=== PATIENT | male | born 1955 | race Caucasian/White ===

== ENCOUNTER → 2016-07-29 | Outpatient (CLI) | payer OTHER ==
[~2016-07-29] MED LIST: AMLO10TA OR; AMLO5TAB2 PO; AMOX500T PO; ASPI325T OR; ASPI325T PO; ATEN25TA PO; BIAX500T PO; CARA1TAB2 PO; CIPR500T89 PO; COLA50CA3 PO; DAILTAB51 PO; DOCU100C PO; FLAG500T PO; FOLI1TAB2 PO; HYDR25TA6 OR; LISI2.5T PO; LOPR50TA OR; LORTTAB5 PO; MAALSUS OR; MAGN400C2 PO; MAGN400T5 PO; MYLASS PO; NICO21DI4 TD; OXYC-208 PO; OXYCO5TA PO; PEPC10TA PO; PERC5TAB8 OR; POTA1TAB14 PO; PRIL40CA PO; REGL10TA6 PO; THERTAB30 PO; TYLE325T5 PO; VITA100T92 PO
--- NOTE | 2016-07-29 09:57 | REP ---
PARTIAL LUMBAR SPINE, THREE VIEWS: HISTORY: Back pain. There is no acute fracture or subluxation. The intervertebral discs are decreased in height consistent with disc degeneration. Osteophytes are present throughout the lumbar spine. There is sclerosis of the L4-5 and L5-S1 facets. IMPRESSION: Degenerative change as described above. Signed by Darien Garcia MD 07/29/2016 10:24 A
== END ==
LOC: M RAD 09:07
PROVIDERS: ATTEND Family Medicine Addiction Medicine
DX: M54.5 Low back pain (principal); M51.36 Other intervertebral disc degeneration, lumbar region

== ENCOUNTER → 2016-11-28 | Outpatient (CLI) | payer OTHER ==
[~2016-11-28] MED LIST changes: -DOCU100C PO; +DOCU100C16 PO; -FOLI1TAB2 PO; +FOLI1TAB4 PO
--- NOTE | 2016-12-09 00:51 | ECWPNPC ---
PATIENT NAME: IVETH ELENA : 1955 GENDER: MALE VISIT DATE: 11/28/2016 DISCHARGE DATE: 11/28/16 1514 VISIT LOCKED DATE TIME: PHYSICIAN: MICHAELA GRAJEDA RESOURCE: MICHAELA GRAJEDA REASON FOR APPOINTMENT 1. BACK PAIN HISTORY OF PRESENT ILLNESS FALL RISK SCREENING: SCREENING :NO FALLS IN THE PAST YEAR 61 YEAR OLD MALE PATIENT WITH HISTORY OF CHRONIC LOW BACK PAIN. PATIENT DESCRIBES THE PAIN SHARP WITH A PAIN SCORE OF 8-9/10. PATIENT REPORTS NO TRAUMA BUT IT HAS GOTTEN PROGRESSIVELY MORE SEVERE. MR. ELENA HAS NOT TRIED PHYSICAL THERAPY OR HAD ANY BACK SURGERIES. PATIENT STATES THAT WALKING INCREASES THE PAIN THE MOST. CURRENTLY THE PATIENT IS NOT USING ANY MEDICATION HE HAS NOT FOUND ANY MEDICATION THAT GIVES HIM RELIEF. PATIENT DENIES UNEXPLAINABLE WEIGHT LOSS, FEVER, CHILLS, NEW CHANGES ON HIS URINARY OR BOWEL CONTROL. PAIN SCREENING: PATIENT HAS A COMPLAINT OF ACUTE OR CHRONIC PAIN :YES CURRENT MEDICATIONS TAKING LACTOBACILLUS RHAMNOSUS (GG) - CAPSULE 1 CAP(S) ORALLY DAILY TAKING POTASSIUM CHLORIDE SA 20 MEQ TABLET 1 TAB(S) ORALLY DAILY TAKING LISINOPRIL 20 20 MG TABLET 1 TAB(S) ORALLY DAILY TAKING ATORVASTATIN CALCIUM 10 MG TABLET 1 TABLET ORALLY ONCE A DAY TAKING PANTOPRAZOLE SODIUM 40 MG TABLET DELAYED RELEASE 1 TABLET ORALLY ONCE A DAY TAKING HYDROCHLOROTHIAZIDE 25 MG TABLET 1 TABLET IN THE MORNING ORALLY DAILY TAKING ATENOLOL 25 MG TABLET 1 TABLET ORALLY ONCE A DAY NOT-TAKING CALCIUM CITRATE 950 MG TABLET 1 TABLET ORALLY DAILY NOT-TAKING DAILY CHERRIE 1 TABLET 1 TAB(S) ORALLY DAILY NOT-TAKING THIAMINE HCL 100 MG TABLET 1 TABLET ORALLY ONCE A DAY NOT-TAKING FOLIC ACID 1 MG TABLET 1 TABLET ORALLY ONCE A DAY NOT-TAKING MAGNESIUM 500 MG TABLET 1 TABLET WITH A MEAL ORALLY ONCE A DAY NOT-TAKING DOCUSATE SODIUM 100 MG CAPSULE 1 CAPSULE NEEDED ORALLY ONCE A DAY MEDICATION LIST REVIEWED AND RECONCILED WITH THE PATIENT PAST MEDICAL HISTORY SD 09/2012, TYPE 2 (ACUTE BLOOD LOSS) GERD PERFORATED GASTRIC ULCER HTN ALCOHOL ABUSE DIVERTICULOSIS COLONIC POLYPS NEXT COLONOSCOPY DUE IN 3 YEARS -- APPROXIMATELY 04/2017 (SUSAN) 10 YEAR ASCVD RISK CALCULATED AT 11.8% (12/2013) FRACTURED RIBS 6 AND 7 ANGINA CARPAL TUNNEL BILATERAL ALLERGIES N.K.D.A. SURGICAL HISTORY DILATION OF DISTAL COMMON BILE DUCT (OBSTRUCTED BY SURGICAL CLIP) -- VERONIQUE'Vivek 11/2013 BILE DUCT STENT REPAIR [facility] ABDOMINAL COILS (FOR GASTRIC VESSELS WITH BLEEDING ULCER) SURGERY FOR PERFORATED GASTRIC ULCER 2013 LEFT LUNG BIOPSY FAMILY HISTORY FATHER: 43 YRS, [place], DIAGNOSED WITH HEART DISEASE MOTHER: ALIVE 2 BROTHER(S) , 4 SISTER(S) . 3DAUGHTER(S) . 1 DGTR HAS HEP C. SOCIAL HISTORY GENERAL: TOBACCO USE ARE YOU A:CURRENT SMOKER HOW MANY CIGARETTES A DAY DO YOU SMOKE?31 OR MORE HOW SOON AFTER YOU WAKE UP DO YOU SMOKE YOUR FIRST CIGARETTE?WITHIN 5 MIN HOW OFTEN DO YOU SMOKE CIGARETTES?EVERY DAY PATIENT COUNSELED ON THE DANGERS OF TOBACCO USE AND URGED TO QUIT:11/28/2016 ARE YOU INTERESTED IN QUITTING?NOT READY TO QUIT COUNSELED THE PATIENT ON SMOKING EFFECTS, EDUCATION [id number]/21/2017 ADDITIONAL FINDINGS: TOBACCO USERHEAVY CIGARETTE SMOKER (20-39 CIGS/DAY) SMOKING CESSATION INFORMATION GIVEN11/28/2016 LUNG CANCER SCREENING SMOKING STATUS:CURRENT SMOKER IS THE PATIENT BETWEEN THE AGE OF 55 AND 77?YES HAS THE PATIENT EVER BEEN DIAGNOSED WITH LUNG CANCER?NO PACK YEARS = NUMBER OF PACKS PER DAY SMOKED X NUMBER OF YEARS SMOKED:60 CREATE REFERRAL: PT DECLINES AT THIS TIME. RECREATIONAL DRUG USE DENIES. CAFFEINE 1-2/DAY TEA. OCCUPATION: TEMPORARY DISABILITY. DIET: REGULAR. LANGUAGE LANGUAGES SPOKEN:[employer] DIRECTIVES HEALTH CARE PROXY?NO WOULD YOU LIKE MORE INFORMATION?NO DO YOU HAVE A DNR?NO WOULD YOU LIKE MORE INFORMATION?NO LIVING WILL?NO WOULD YOU LIKE MORE INFORMATION?NO POWER OF FIRE CONTROL ASSISTANT?NO WOULD YOU LIKE MORE INFORMATION?NO HOSPITALIZATION/MAJOR DIAGNOSTIC PROCEDURE [facility]- LEFT LUNG BIOPSY- NEGATIVE PERFORATED GASTRIC ULCERS REVIEW OF SYSTEMS REVIEWED BY: PROVIDER: MICHAELA GRAJEDA MD . CONSTITUTIONAL: ANY CHANGE IN YOUR MEDICAL CONDITION? NO . CHILLS NO . FEVER NO . INFECTION: DO YOU HAVE NEW INFECTIONS? NO . DO YOU HAVE HISTORY OF MRSA? NO . MUSCULOSKELETAL: ANY NEW PATTERNS OF PAIN OR NUMBNESS? YES PT REPORTS PROGRESSIVELY INCREASING PAIN IN LOW BACK OVER THE LAST 5 YEARS. ALSO REPORTS PAIN IN RIGHT FOOT THAT STARTED IN THE LAST SIX MONTHS, FEELS LIKE HE IS &QUOT;WALKING ON A GOLF BALL&QUOT; . SYTEMIC LUPUS NO . GASTROENTEROLOGY: ANY NEW CHANGE IN BOWEL CONTROL? NO . BARRETTS ESOPHAGUS NO . CIRRHOSIS NO . HEPATITIS NO . LIVER FAILURE NO . ACID REFLUX YES . UNEXPLAINED WEIGHT LOSS NO . GENITOURINARY: ANY NEW CHANGE IN BLADDER CONTROL? NO . IS THERE A CHANCE YOU COULD BE ? NO . HEMATOLOGY/LYMPH: DO YOU TAKE ANY BLOOD THINNERS? (FOR EXAMPLE- COUMADIN, PLAVIX, AGGRENOX, PLATEL, PRADAXA, OR XARELTO) NO . WHEN WAS YOUR LAST DOSE? DATE: TIME: . LOW PLATELET COUNT NO . SICKLE CELL DISEASE NO . VON WILLIEBRANDS NO . FACTOR V LEIDEN NO . THALLASEMIA NO . ANEMIA NO . EASY BRUISING NO . NEUROLOGY: HAVE YOU FALLEN IN THE PAST 6 MONTHS? NO . ANY NEW EXTREMITY NUMBNESS OR WEAKNESS? NO . HEAD INJURY NO . DEMENTIA NO . CEREBRAL PALSY NO . MULTIPLE SCLEROSIS NO . DIZZINESS NO . HEADACHE NO . STROKES NO . VERTIGO NO . CARDIOLOGY: DO YOU HAVE A PACEMAKER OR DEFIBRILLATOR? NO . ANGINA YES . HEART ATTACK YES PT HAD AN SD SECONDARY TO BLOOD LOSS AFTER PERFORATED GASTRIC ULCERS 2013 . HEART SURGERY NO . CONGESTIVE HEART FAILURE/FLUID OVERLOAD NO . CHEST PAIN NO . HIGH BLOOD PRESSURE ON MEDICATION(S) . IRREGULAR HEART BEAT NO . RESPIRATORY: HAVE YOU BEEN SICK IN THE PAST WEEK? NO . FEVER NO . FLU LIKE SYMPTOMS? NO . CPAP NO . BYPAP NO . ASTHMA NO . EMPHYSEMA NO . CHRONIC LUNG DISEASES NO . SHORTNESS OF BREATH ON EXERTION NO . COUGH NO . SNORING NO . INTEGUMENTARY: DO YOU HAVE ANY RASHES OR OPEN SORES? NO . ALLERGIC/IMMUNO: ARE YOU ALLERGIC TO SHELLFISH OR IV DYE? NO . ANY NEW ALLERGIES? NO . PSYCHIATRIC: DO YOU HAVE THOUGHTS OF HURTING YOURSELF OR SOMEONE ELSE? NO . ARE YOU ABUSED, NEGLECTED, OR IN AN UNSAFE ENVIRONMENT? NO . ENDOCRINOLOGY: ARE YOU DIABETIC? NO . THYROID DISORDER NO . OTHER: DO YOU NEED ANY PRESCRIPTIONS? NO . IF YES, PLEASE LIST: ____ . ANY NEW PROBLEMS WITH YOUR MEDICATIONS? NO . WHEN DID YOU LAST EAT? ____ . WHEN DID YOU LAST DRINK? ____ . WHAT DID YOU LAST DRINK? ____ . NAME OF PERSON DRIVING YOU HOME? ____ . DO YOU HAVE ANY OTHER QUESTIONS OR CONCERNS NO . VITAL SIGNS WT 213.0 LBS, HT 66 IN, BMI 34.38 INDEX, BP 140/81 MM HG, HR 72 /MIN, RR 18 /MIN, TEMP 97.2 F, OXYGEN SAT % 96%, SAFE IN ENV? (Y/N) YES, NA INITIALS TL 1326, REVIEWED BY: WAGNER. EXAMINATION : PATIENT IS ALERT O X 3 AND COOPERATIVE. TENDERNESS IN THE LOWER BACK AND PARASPINAL MUSCLE GROUP. LIMPING FROM THE RIGHT LEG. X-RAY OF THE LUMBAR SPINE DONE ON 07/10/16 SHOWS FACET ATROPHY. ASSESSMENTS MYALGIA - M79.1 (PRIMARY) SPONDYLOSIS WITHOUT MYELOPATHY OR RADICULOPATHY, LUMBAR REGION - M47.816 SPONDYLOSIS WITHOUT MYELOPATHY OR RADICULOPATHY, LUMBOSACRAL REGION - M47.817 TREATMENT MYALGIA NOTES: WE DISCUSSED SEVERAL ISSUES WITH MR. ELENA'S PAIN MANAGEMENT CASE. PATIENT WILL NOT RECEIVE ANY NEW MEDICATION AT THIS TIME. I WOULD LIKE THE PATIENT TO START PHYSICAL THERAPY TO SEE IF IT WILL AID IN MOBILITY AND FUNCTIONALITY FOR THE PATIENT. PATIENT WILL BE REFERRED TO OIL AND GAS SUPERINTENDENT FOR HIS FOOT PAIN HE HAS WHILE WALKING. I WOULD LIKE THE PATIENT TO RETURN IN 6 WEEKS TO DISCUSS HOW PHYSICAL THERAPY AIDED HIM IN PAIN RELIEF. INSTRUCTIONS WERE GIVEN, QUESTIONS WERE ANSWERED, PATIENT REPORTS UNDERSTANDING AND AGREES WITH THE PLAN. I, EDIS SKINNER, DOCUMENTED THE ABOVE INFORMATION ACTING A SCRIBE FOR DR. GRAJEDA. I HAVE REVIEWED THE ABOVE DOCUMENT, WRITTEN BY EDIS HART AND I VERIFY THAT IT IS ACCURATE. DEAR DR. SANTOS:THANK YOU FOR YOUR KIND REFERRAL OF MR. LAZARO. YOU WANT TO DISCUSS HER CASE WITH ME PLEASE CALL ME AT THE PAIN CENTER AT [phone]. SINCERELY,MICHAELA GRAJEDA, [facility]. PROCEDURE CODES FA211 ESTABILISHED PATIENT [facility] FACILITY CHARGE G8427 DOC MEDS VERIFIED W/PT OR RE G8730 PAIN ASSESS POS TOOL F/U PLAN DOC DISPOSITION & COMMUNICATION FOLLOW UP 6 WEEKS ELECTRONICALLY SIGNED BY MICHAELA GRAJEDA MD ON 12/08/2016 AT 06:05 PM EDT DISCLAIMER : THIS IS A VISIT SUMMARY EXTRACTED FROM THE [employer] CHART. IT IS NOT A COPY OF THE [employer] PROGRESS NOTE. MTDD
== END | disposition home or self-care (01) ==
LOC: M PAIN 12:40
PROVIDERS: ATTEND Anesthesiology
DX: G89.29 Other chronic pain (principal); M79.1 Myalgia; M47.816 Spondylosis without myelopathy or radiculopathy, lumbar region; M47.817 Spondylosis without myelopathy or radiculopathy, lumbosacral region; I25.2 Old myocardial infarction; K21.9 Gastro-esophageal reflux disease without esophagitis; I10 Essential (primary) hypertension; F10.21 Alcohol dependence, in remission; Z87.19 Personal history of other diseases of the digestive system; Z86.010 Personal history of colon polyps; G56.03 Carpal tunnel syndrome, bilateral upper limbs; Z79.899 Other long term (current) drug therapy; F17.210 Nicotine dependence, cigarettes, uncomplicated

== ENCOUNTER 2017-01-07 13:45 | Outpatient (RCR) | payer OTHER | END 2017-01-08 | LOC: M PT 13:45 | PROVIDERS: ATTEND Anesthesiology | DX: Z51.89 Encounter for other specified aftercare (principal); M54.5 Low back pain ==

== ENCOUNTER → 2017-01-09 | Outpatient (CLI) | payer OTHER ==
--- NOTE | 2017-01-30 01:07 | ECWPNPC ---
PATIENT NAME: IVETH ELENA : 1955 GENDER: MALE VISIT DATE: 01/09/2017 DISCHARGE DATE: 01/09/17 1213 VISIT LOCKED DATE TIME: PHYSICIAN: JEANNIE MCFARLAND RESOURCE: JEANNIE MCFARLAND REASON FOR APPOINTMENT 1. MEDS HISTORY OF PRESENT ILLNESS HISTORY OF PRESENT ILLNESS: PAIN THE PATIENT DESCRIBES THE PAIN... FALL RISK SCREENING: SCREENING :NO FALLS IN THE PAST YEAR TODAY'S VISIT: NOTES: RATES PAIN TODAY 0/10 BUT SAYS THIS HAS NOT HELPED VERY MUCH. NOTES PAIN INCREASES WITH WALKING AND WITH PROLONG STANDING. IS ABLE TO SLEEP. HAS HAD SOME NEW DIFFICULTY WITH LEFT KNEE DUE TO A PT STRETCHHAS APPOINTMENT TO SEE QUAD STAYER FOR LEFT FOOT. . CURRENT MEDICATIONS TAKING LACTOBACILLUS RHAMNOSUS (GG) - CAPSULE 1 CAP(S) ORALLY DAILY TAKING POTASSIUM CHLORIDE SA 20 MEQ TABLET 1 TAB(S) ORALLY DAILY TAKING LISINOPRIL 20 20 MG TABLET 1 TAB(S) ORALLY DAILY TAKING ATORVASTATIN CALCIUM 10 MG TABLET 1 TABLET ORALLY ONCE A DAY TAKING PANTOPRAZOLE SODIUM 40 MG TABLET DELAYED RELEASE 1 TABLET ORALLY ONCE A DAY TAKING HYDROCHLOROTHIAZIDE 25 MG TABLET 1 TABLET IN THE MORNING ORALLY DAILY TAKING ATENOLOL 25 MG TABLET 1 TABLET ORALLY ONCE A DAY NOT-TAKING CALCIUM CITRATE 950 MG TABLET 1 TABLET ORALLY DAILY NOT-TAKING DAILY CHERRIE 1 TABLET 1 TAB(S) ORALLY DAILY NOT-TAKING THIAMINE HCL 100 MG TABLET 1 TABLET ORALLY ONCE A DAY NOT-TAKING FOLIC ACID 1 MG TABLET 1 TABLET ORALLY ONCE A DAY NOT-TAKING MAGNESIUM 500 MG TABLET 1 TABLET WITH A MEAL ORALLY ONCE A DAY NOT-TAKING DOCUSATE SODIUM 100 MG CAPSULE 1 CAPSULE NEEDED ORALLY ONCE A DAY MEDICATION LIST REVIEWED AND RECONCILED WITH THE PATIENT PAST MEDICAL HISTORY [place] 09/2012, TYPE 2 (ACUTE BLOOD LOSS) GERD PERFORATED GASTRIC ULCER HTN ALCOHOL ABUSE DIVERTICULOSIS COLONIC POLYPS NEXT COLONOSCOPY DUE IN 3 YEARS -- APPROXIMATELY 04/2017 (SUSAN) 10 YEAR ASCVD RISK CALCULATED AT 11.8% (12/2013) FRACTURED RIBS 6 AND 7 ANGINA CARPAL TUNNEL BILATERAL ALLERGIES N.K.D.A. SURGICAL HISTORY DILATION OF DISTAL COMMON BILE DUCT (OBSTRUCTED BY SURGICAL CLIP) -- [facility] 11/2013 BILE DUCT STENT REPAIR [facility] ABDOMINAL COILS (FOR GASTRIC VESSELS WITH BLEEDING ULCER) SURGERY FOR PERFORATED GASTRIC ULCER 2013 LEFT LUNG BIOPSY HOSPITALIZATION/MAJOR DIAGNOSTIC PROCEDURE SMC- LEFT LUNG BIOPSY- NEGATIVE PERFORATED GASTRIC ULCERS REVIEW OF SYSTEMS REVIEWED BY: PROVIDER: JEANNIE HOLLAND . CONSTITUTIONAL: ANY CHANGE IN YOUR MEDICAL CONDITION? NO . CHILLS NO . FEVER NO . INFECTION: DO YOU HAVE NEW INFECTIONS? NO . DO YOU HAVE HISTORY OF MRSA? NO . MUSCULOSKELETAL: ANY NEW PATTERNS OF PAIN OR NUMBNESS? NO . GASTROENTEROLOGY: ANY NEW CHANGE IN BOWEL CONTROL? NO . GENITOURINARY: ANY NEW CHANGE IN BLADDER CONTROL? NO . IS THERE A CHANCE YOU COULD BE ? NO . HEMATOLOGY/LYMPH: DO YOU TAKE ANY BLOOD THINNERS? (FOR EXAMPLE- COUMADIN, PLAVIX, AGGRENOX, PLATEL, PRADAXA, OR XARELTO) NO . WHEN WAS YOUR LAST DOSE? DATE: TIME: . NEUROLOGY: HAVE YOU FALLEN IN THE PAST 6 MONTHS? NO . ANY NEW EXTREMITY NUMBNESS OR WEAKNESS? NO . CARDIOLOGY: DO YOU HAVE A PACEMAKER OR DEFIBRILLATOR? NO . RESPIRATORY: HAVE YOU BEEN SICK IN THE PAST WEEK? NO . FEVER NO . FLU LIKE SYMPTOMS? NO . COUGH NO . INTEGUMENTARY: DO YOU HAVE ANY RASHES OR OPEN SORES? NO . ALLERGIC/IMMUNO: ARE YOU ALLERGIC TO SHELLFISH OR IV DYE? NO . ANY NEW ALLERGIES? NO . PSYCHIATRIC: DO YOU HAVE THOUGHTS OF HURTING YOURSELF OR SOMEONE ELSE? NO . ARE YOU ABUSED, NEGLECTED, OR IN AN UNSAFE ENVIRONMENT? NO . ENDOCRINOLOGY: ARE YOU DIABETIC? NO . OTHER: DO YOU NEED ANY PRESCRIPTIONS? NO . IF YES, PLEASE LIST: ____ . ANY NEW PROBLEMS WITH YOUR MEDICATIONS? NO . WHEN DID YOU LAST EAT? ____ . WHEN DID YOU LAST DRINK? ____ . WHAT DID YOU LAST DRINK? ____ . NAME OF PERSON DRIVING YOU HOME? ____ . DO YOU HAVE ANY OTHER QUESTIONS OR CONCERNS NO . VITAL SIGNS WT 214.4 LBS, HT 66 IN, BMI 34.60 INDEX, BP 165/108 MM HG, HR 86 /MIN, RR 16 /MIN, TEMP 97.6 F, OXYGEN SAT % 96, REVIEWED BY: EM. EXAMINATION GENERAL EXAMINATION: PSYCHALERT , ORIENTED X 3 , SOME IRRITABILITY NOTED. LUNGS:BILATERAL SCATTERED WHEEZES. DECREASED BREATH SOUNDS AT BASES. HEART:HEART RATE REGULAR. MUSCULOSKELETAL:MUSCLE STRENGTH TESTING 5/5 BILATERAL LOWER EXTREMITIES. MILD TENDERNESS OVER LUMBOSACRAL AXIS TO PALPATION. SLOW TO RISE TO STANDING POSITION. POSTURE UPRIGHT. STATION AND GAIT NORMAL. EXTREMITIES:NO EDEMA. ASSESSMENTS MYALGIA - M79.1 (PRIMARY) SPONDYLOSIS WITHOUT MYELOPATHY OR RADICULOPATHY, LUMBAR REGION - M47.816 SPONDYLOSIS WITHOUT MYELOPATHY OR RADICULOPATHY, LUMBOSACRAL REGION - M47.817 TREATMENT MYALGIA NOTES: CONTINUE PHYSICAL THERAPYFOLLOW UP WITH QUAD STAYER.FOLLOW UP WITH PCP REGARDING BLOOD PRESSURE. PROCEDURE CODES FA211 ESTABILISHED PATIENT [facility] CHARGE DISPOSITION & COMMUNICATION FOLLOW UP 4-6 WEEKS (REASON: BACK PAIN) ELECTRONICALLY SIGNED BY YEIMY FAIR ON 01/29/2017 AT 09:49 PM EDT DISCLAIMER : THIS IS A VISIT SUMMARY EXTRACTED FROM THE [email or web address] CHART. IT IS NOT A COPY OF THE [email or web address] PROGRESS NOTE. FLORA
== END ==
LOC: M PAIN 11:15
PROVIDERS: ATTEND Nurse Practitioner Family
DX: M79.1 Myalgia (principal); M47.816 Spondylosis without myelopathy or radiculopathy, lumbar region; M47.817 Spondylosis without myelopathy or radiculopathy, lumbosacral region; I10 Essential (primary) hypertension; Z79.899 Other long term (current) drug therapy

== ENCOUNTER 2017-01-23 15:13 | Outpatient (RCR) | payer OTHER | END 2017-02-07 | LOC: M PT 15:13 | PROVIDERS: ATTEND Anesthesiology | DX: Z51.89 Encounter for other specified aftercare (principal); M54.5 Low back pain ==

== ENCOUNTER 2017-06-19 21:52 | Inpatient (IN) | payer OTHER ==
[2017-06-19 23:25] LABS: BASO # 0.1 10^3/uL (0.0-0.2); BASO % 0.7 % (0.0-1.0); EOS # 0.3 10^3/uL (0.0-0.50); EOS % 3.3 % (0.0-3.0); HEMATOCRIT 42.7 % (42.0-52.0); HEMOGLOBIN 14.6 g/dl (14.0-18.0); IMMATURE GRANULOCYTE % 0.4 % (0-3.0); LYMPH # 3.3 10^3/uL (1.5-4.5); LYMPH % 31.9 % (24.0-44.0); MEAN CORPUSCULAR HEMOGLOBIN 34.4 pg (27.0-33.0); MEAN CORPUSCULAR HGB CONC 34.2 g/dl (32.0-36.5); MEAN CORPUSCULAR VOLUME 100.7 fl (80.0-96.0); MONO # 1.1 10^3/uL (0.0-0.8); MONO % 10.7 % (0.0-5.0); NEUTROPHILS # 5.5 10^3/uL (1.8-7.7); PLATELET COUNT, AUTOMATED 175 10^3/uL (150-450); RED BLOOD COUNT 4.24 10^6/uL (4.30-6.10); RED CELL DISTRIBUTION WIDTH 13.9 % (11.5-14.5); WHITE BLOOD COUNT 10.4 10^3/uL (4.0-10.0)
[2017-06-19 23:35] LABS: ANION GAP 8 MEQ/L (8-16); BLOOD UREA NITROGEN 8 MG/DL (7-18); CALCIUM LEVEL 8.1 MG/DL (8.8-10.2); CARBON DIOXIDE LEVEL 26 MEQ/L (21-32); CHLORIDE LEVEL 101 MEQ/L (98-107); CREATININE FOR GFR 0.85 MG/DL (0.70-1.30); GLOMERULAR FILTRATION RATE > 60.0 (>49); GLUCOSE, FASTING 124 MG/DL (70-100); POTASSIUM SERUM 4.2 MEQ/L (3.5-5.1); SODIUM LEVEL 135 MEQ/L (136-145)
[2017-06-19 23:37] LABS: INR 0.99; PROTHROMBIN TIME 13.2 SECONDS (12.4-14.5)
[2017-06-19 23:38] LABS: PARTIAL THROMBOPLASTIN TIME 28.6 SECONDS (26.8-37.9)
[2017-06-20] MEDS ORDERED: KETOROLAC 30 MG/ML VIAL (J1885) As Ordered (00:56)
[2017-06-20] MEDS: KETOROLAC 30 MG/ML VIAL (J1885) IV (01:00)
[2017-06-20] MEDS ORDERED: ISOVUE-370 76% 100ML VIAL (Q9967) As Ordered (03:11)
[2017-06-20] MEDS: HEPARIN SOD (PORCINE) 5000 UNITS/ML VIAL IV (03:54)
[2017-06-20] MEDS: HEPARIN DRIP 25,000 UNITS in APPROPRIATE DILUENT 1 EA IV ×3 (03:58→21:34)
[2017-06-20] MEDS: MORPHINE 4 MG/ML 1ML VIAL (J2270) IV (04:08)
[2017-06-20] MEDS ORDERED: ceFAZolin 1GM INJ (J0690 PER 500MG) As Ordered (05:45)
[2017-06-20] MEDS: HEPARIN SOD (PORCINE) 5000 UNITS/ML VIAL As Ordered (05:54)
[2017-06-20] MEDS: LIDOCAINE 1% SDV INJ 30 ML VIAL As Ordered (05:54)
[2017-06-20] MEDS: BUPIVACAINE HCL 0.5% 30 ML VIAL As Ordered (05:54)
[2017-06-20] MEDS ORDERED: fentaNYL 100 MCG/2 ML INJECTION (J3010) As Ordered (06:29)
[2017-06-20] MEDS ORDERED: LIDOCAINE 2% INJ 100 MG/5 ML SDV (FOR ANES.) As Ordered (06:29)
[2017-06-20] MEDS ORDERED: PROPOFOL 200 MG/20 ML VIAL As Ordered (06:29)
[2017-06-20] MEDS ORDERED: MIDAZOLAM INJ 2 MG/2 ML VIAL (J2250) As Ordered (06:29)
[2017-06-20] MEDS ORDERED: HEPARIN SOD (PORCINE) 5000 UNITS/ML VIAL As Ordered (06:29)
[2017-06-20] MEDS ORDERED: PHENYLephrine HCL 500 MCG/5 ML (100MCG/ML) SYRINGE (J2370) As Ordered (06:46)
[2017-06-20] MEDS ORDERED: MORPHINE 4 MG/ML 1ML VIAL (J2270) IV ×2 (07:15)
[2017-06-20] MEDS ORDERED: ONDANSETRON 4MG/2ML VIAL (J2405) IV ×2 (07:15→07:45)
[2017-06-20] MEDS ORDERED: MOM 30ML SUSPENSION UDC PO (07:15)
[2017-06-20] MEDS ORDERED: BISACODYL 10 MG SUPP PR (07:15)
[2017-06-20] MEDS ORDERED: ACETAMINOPHEN TAB 650MG DOSE (2X325MG) PO (07:15)
[2017-06-20] MEDS ORDERED: fentaNYL 100 MCG/2 ML INJECTION (J3010) IV (07:45)
[2017-06-20] MEDS: LR 1,000 ML IV ×2 (07:45→17:45)
[2017-06-20] MEDS: NS 1,000 ML IV (09:00)
[2017-06-20] MEDS: SENOKOT S TAB PO ×2 (12:05→20:47)
[2017-06-20] MEDS: ATENOLOL 25 MG TAB PO (12:05)
[2017-06-20] MEDS: DOCUSATE SODIUM 100 MG CAP PO ×2 (12:05→20:47)
[2017-06-20] MEDS: PANTOPRAZOLE 40MG TAB (PROTONIX) PO (12:06)
[2017-06-20] MEDS: POTASSIUM CHLORIDE 10 MEQ SR TABLET PO (12:06)
[2017-06-20] MEDS: hydroCHLOROthiazide 25 MG TAB PO (12:07)
[2017-06-20] MEDS: ATORVASTATIN 10 MG TAB PO (12:07)
[2017-06-20] MEDS: LISINOPRIL 20 MG TAB PO (12:08)
[2017-06-20] MEDS: NORCO, ANEXSIA 5/325MG TABLET (HYDROcodone/ACETAMINOPHEN) PO ×2 (15:37→21:30)
[2017-06-20 16:09] LABS: PARTIAL THROMBOPLASTIN TIME 164.8 SECONDS (26.8-37.9)
[2017-06-21] MEDS ORDERED: HEPARIN SOD (PORCINE) 5000 UNITS/ML VIAL IV
[2017-06-21 00:18] LABS: PARTIAL THROMBOPLASTIN TIME 63.1 SECONDS (26.8-37.9)
[2017-06-21] MEDS: LR 1,000 ML IV ×2 (00:35→13:45)
[2017-06-21] MEDS: HEPARIN SOD (PORCINE) 5000 UNITS/ML VIAL IV ×2 (00:44→15:11)
[2017-06-21] MEDS ORDERED: SLF 3 ML SYR IV (03:15)
[2017-06-21] MEDS: SLF 3 ML SYR IV ×3 (05:16→20:05)
[2017-06-21] MEDS: SENOKOT S TAB PO ×2 (07:21→20:05)
[2017-06-21] MEDS: DOCUSATE SODIUM 100 MG CAP PO ×2 (07:21→20:05)
[2017-06-21] MEDS: NORCO, ANEXSIA 5/325MG TABLET (HYDROcodone/ACETAMINOPHEN) PO ×3 (07:42→20:06)
[2017-06-21] MEDS: ATORVASTATIN 10 MG TAB PO (08:24)
[2017-06-21] MEDS: POTASSIUM CHLORIDE 10 MEQ SR TABLET PO (08:24)
[2017-06-21] MEDS: PANTOPRAZOLE 40MG TAB (PROTONIX) PO (08:24)
[2017-06-21] MEDS: hydroCHLOROthiazide 25 MG TAB PO (11:14)
[2017-06-21] MEDS: LISINOPRIL 20 MG TAB PO (11:15)
[2017-06-21] MEDS: ATENOLOL 25 MG TAB PO (11:15)
[2017-06-21] MEDS: HEPARIN DRIP 25,000 UNITS in APPROPRIATE DILUENT 1 EA IV (15:14)
[2017-06-21 22:03] LABS: PARTIAL THROMBOPLASTIN TIME 133.1 SECONDS (26.8-37.9)
[2017-06-22] MEDS: SLF 3 ML SYR IV ×3 (03:49→19:59)
[2017-06-22] MEDS: NORCO, ANEXSIA 5/325MG TABLET (HYDROcodone/ACETAMINOPHEN) PO ×5 (03:49→23:37)
[2017-06-22 05:39] LABS: PARTIAL THROMBOPLASTIN TIME 76.7 SECONDS (26.8-37.9)
[2017-06-22] MEDS: hydroCHLOROthiazide 25 MG TAB PO (08:35)
[2017-06-22] MEDS: ATORVASTATIN 10 MG TAB PO (08:35)
[2017-06-22] MEDS: DOCUSATE SODIUM 100 MG CAP PO ×2 (08:36→19:54)
[2017-06-22] MEDS: POTASSIUM CHLORIDE 10 MEQ SR TABLET PO (08:36)
[2017-06-22] MEDS: ATENOLOL 25 MG TAB PO (08:37)
[2017-06-22] MEDS: SENOKOT S TAB PO ×2 (08:38→19:54)
[2017-06-22] MEDS: LISINOPRIL 20 MG TAB PO (08:38)
[2017-06-22] MEDS: PANTOPRAZOLE 40MG TAB (PROTONIX) PO (08:38)
[2017-06-22] MEDS: HEPARIN DRIP 25,000 UNITS in APPROPRIATE DILUENT 1 EA IV (12:13)
[2017-06-22 13:05] LABS: PARTIAL THROMBOPLASTIN TIME 43.3 SECONDS (26.8-37.9)
[2017-06-22 18:44] LABS: PARTIAL THROMBOPLASTIN TIME 49.3 SECONDS (26.8-37.9)
[2017-06-23 01:34] LABS: PARTIAL THROMBOPLASTIN TIME 111.9 SECONDS (26.8-37.9)
[2017-06-23] MEDS: SLF 3 ML SYR IV ×3 (03:56→19:32)
[2017-06-23] MEDS: NORCO, ANEXSIA 5/325MG TABLET (HYDROcodone/ACETAMINOPHEN) PO ×3 (05:53→19:36)
[2017-06-23 08:31] LABS: PARTIAL THROMBOPLASTIN TIME 101.3 SECONDS (26.8-37.9)
[2017-06-23] MEDS: HEPARIN DRIP 25,000 UNITS in APPROPRIATE DILUENT 1 EA IV (08:57)
[2017-06-23] MEDS: ATENOLOL 25 MG TAB PO (08:58)
[2017-06-23] MEDS: ATORVASTATIN 10 MG TAB PO (08:58)
[2017-06-23] MEDS: POTASSIUM CHLORIDE 10 MEQ SR TABLET PO (08:58)
[2017-06-23] MEDS: hydroCHLOROthiazide 25 MG TAB PO (08:58)
[2017-06-23] MEDS: LISINOPRIL 20 MG TAB PO (08:59)
[2017-06-23] MEDS: SENOKOT S TAB PO ×2 (08:59→19:32)
[2017-06-23] MEDS: PANTOPRAZOLE 40MG TAB (PROTONIX) PO (08:59)
[2017-06-23] MEDS: DOCUSATE SODIUM 100 MG CAP PO ×2 (09:00→19:32)
[2017-06-23 19:42] LABS: PARTIAL THROMBOPLASTIN TIME 60.4 SECONDS (26.8-37.9)
[2017-06-23] MEDS: HEPARIN SOD (PORCINE) 5000 UNITS/ML VIAL IV (20:55)
[2017-06-24] MEDS: NORCO, ANEXSIA 5/325MG TABLET (HYDROcodone/ACETAMINOPHEN) PO ×3 (01:15→10:47)
[2017-06-24] MEDS: SLF 3 ML SYR IV ×2 (01:19→13:13)
[2017-06-24 03:34] LABS: PARTIAL THROMBOPLASTIN TIME 175.1 SECONDS (26.8-37.9)
[2017-06-24] MEDS: HEPARIN DRIP 25,000 UNITS in APPROPRIATE DILUENT 1 EA IV (05:00)
[2017-06-24] MEDS: hydroCHLOROthiazide 25 MG TAB PO (08:24)
[2017-06-24] MEDS: ATORVASTATIN 10 MG TAB PO (08:24)
[2017-06-24] MEDS: ATENOLOL 25 MG TAB PO (08:25)
[2017-06-24] MEDS: PANTOPRAZOLE 40MG TAB (PROTONIX) PO (08:25)
[2017-06-24] MEDS: LISINOPRIL 20 MG TAB PO (08:25)
[2017-06-24] MEDS: POTASSIUM CHLORIDE 10 MEQ SR TABLET PO (08:25)
[2017-06-24] MEDS: DOCUSATE SODIUM 100 MG CAP PO (08:26)
[2017-06-24] MEDS: SENOKOT S TAB PO (08:26)
[2017-06-24 10:43] LABS: PARTIAL THROMBOPLASTIN TIME 74.9 SECONDS (26.8-37.9)
[2017-06-24] MEDS: RIVAROXABAN 15 MG TAB (XARELTO) PO (13:12)
[2017-06-24] MEDS ORDERED: RIVAROXABAN 15 MG TAB (XARELTO) PO (18:00)
== END 2017-06-24 14:10 | disposition home or self-care (01) | DRG 173 ==
LOC: M SDC 06-20 05:30 → M ED INP 06-20 07:14 → M PCU 06-20 07:42 → M ED 21:52
PROC: 03C70ZZ Extirpation of Matter from Right Brachial Artery, Open Approach (ICD-10-PCS; principal; 2017-06-20 04:59)
PROC: 03C50ZZ Extirpation of Matter from Right Axillary Artery, Open Approach (ICD-10-PCS; 2017-06-20 04:59)
PROC: 03CB0ZZ Extirpation of Matter from Right Radial Artery, Open Approach (ICD-10-PCS; 2017-06-20 04:59)
PROC: 03C90ZZ Extirpation of Matter from Right Ulnar Artery, Open Approach (ICD-10-PCS; 2017-06-20 04:59)
PROC: 03U70JZ Supplement Right Brachial Artery with Synthetic Substitute, Open Approach (ICD-10-PCS; 2017-06-20 04:59)
PROC: 3E030GC Introduction of Other Therapeutic Substance into Peripheral Vein, Open Approach (ICD-10-PCS; 2017-06-20 04:59)
DX: I74.2 Embolism and thrombosis of arteries of the upper extremities (principal); I99.8 Other disorder of circulatory system

== ENCOUNTER 2017-06-27 17:43 | Emergency (ER) | payer OTHER ==
[2017-06-27 19:19] LABS: KETONE, URINE AUTO RFX NEGATIVE (NEGATIVE); LEUKOCYTE ESTERASE UR AUTO RFX NEGATIVE (NEGATIVE); NITRITE, URINE AUTO RFX NEGATIVE (NEGATIVE); RBC, URINE AUTO RFX 4 /HPF (0-3); SPECIFIC GRAVITY UR AUTO RFX 1.008 (1.002-1.035); SQUAM EPITHELIAL CELL UR AURFX 0 /HPF (0-6); WBC, URINE AUTO RFX 1 /HPF (0-3)
[2017-06-27 20:44] LABS: BASO % 0.2 % (0.0-1.0); EOS # 0.3 10^3/uL (0.0-0.50); EOS % 2.7 % (0.0-3.0); HEMATOCRIT 38.1 % (42.0-52.0); HEMOGLOBIN 13.7 g/dl (14.0-18.0); IMMATURE GRANULOCYTE % 0.6 % (0-3.0); LYMPH # 1.6 10^3/uL (1.5-4.5); LYMPH % 14.3 % (24.0-44.0); MEAN CORPUSCULAR HEMOGLOBIN 35.2 pg (27.0-33.0); MEAN CORPUSCULAR VOLUME 97.9 fl (80.0-96.0); MONO # 1.1 10^3/uL (0.0-0.8); MONO % 10.2 % (0.0-5.0); PLATELET COUNT, AUTOMATED 156 10^3/uL (150-450); RED BLOOD COUNT 3.89 10^6/uL (4.30-6.10); RED CELL DISTRIBUTION WIDTH 13.7 % (11.5-14.5); WHITE BLOOD COUNT 11.1 10^3/uL (4.0-10.0)
[2017-06-27 21:00] LABS: INR 1.74; PROTHROMBIN TIME 20.9 SECONDS (12.4-14.5)
[2017-06-27 21:01] LABS: PARTIAL THROMBOPLASTIN TIME 40.6 SECONDS (26.8-37.9)
[2017-06-27 21:12] LABS: ALBUMIN 3.6 GM/DL (3.2-5.2); ALBUMIN/GLOBULIN RATIO 0.84 (1.00-1.93); ALKALINE PHOSPHATASE 195 U/L (45-117); ALT/SGPT 230 U/L (12-78); AMYLASE 23 U/L (25-115); ANION GAP 12 MEQ/L (8-16); AST/SGOT 144 U/L (7-37); BILIRUBIN,DIRECT 3.6 MG/DL (0.0-0.2); BILIRUBIN,TOTAL 4.9 MG/DL (0.2-1.0); BLOOD UREA NITROGEN 21 MG/DL (7-18); CALCIUM LEVEL 8.3 MG/DL (8.8-10.2); CARBON DIOXIDE LEVEL 22 MEQ/L (21-32); CHLORIDE LEVEL 92 MEQ/L (98-107); CREATININE FOR GFR 1.09 MG/DL (0.70-1.30); GLOMERULAR FILTRATION RATE > 60.0 (>49); GLUCOSE, FASTING 106 MG/DL (70-100); LIPASE 252 U/L (73-393); POTASSIUM SERUM 3.6 MEQ/L (3.5-5.1); SODIUM LEVEL 126 MEQ/L (136-145); TOTAL PROTEIN 7.9 GM/DL (6.4-8.2)
[2017-06-27] MEDS ORDERED: ISOVUE-370 76% 100ML VIAL (Q9967) As Ordered (22:46)
[2017-06-27] MEDS: MORPHINE 4 MG/ML 1ML VIAL (J2270) IV (23:07)
[2017-06-29 11:41] LABS: HEPATITIS B SURFACE ANTIGEN NEGATIVE (NEGATIVE)
[2017-06-29 12:08] LABS: HEPATITIS B CORE ANTIBODY IGM NEGATIVE (NEGATIVE)
[2017-06-29 12:10] LABS: HEPATITIS A ANTIBODY IGM NEGATIVE (NEGATIVE)
== END 2017-06-28 00:25 | disposition left against medical advice (07) ==
LOC: M ED 06-28 00:25
DX: N32.89 Other specified disorders of bladder (principal); K75.9 Inflammatory liver disease, unspecified; I71.4 Abdominal aortic aneurysm, without rupture; K21.9 Gastro-esophageal reflux disease without esophagitis; F17.210 Nicotine dependence, cigarettes, uncomplicated; Z79.899 Other long term (current) drug therapy; Z86.69 Personal history of other diseases of the nervous system and sense organs; Z98.890 Other specified postprocedural states; Z87.39 Personal history of other diseases of the musculoskeletal system and connective tissue
CPT/HCPCS: J2270

== ENCOUNTER → 2017-08-27 | Outpatient (CLI) | payer OTHER | LOC: M PAIN 10:45 | DX: M79.1 Myalgia (principal); M47.816 Spondylosis without myelopathy or radiculopathy, lumbar region; M47.817 Spondylosis without myelopathy or radiculopathy, lumbosacral region; I25.2 Old myocardial infarction; K21.9 Gastro-esophageal reflux disease without esophagitis; I10 Essential (primary) hypertension; F10.10 Alcohol abuse, uncomplicated; F17.210 Nicotine dependence, cigarettes, uncomplicated; Z79.899 Other long term (current) drug therapy | CPT/HCPCS: G0463 ==

== ENCOUNTER 2017-09-09 18:35 | Inpatient (IN) | payer OTHER ==
[2017-09-09 20:14] LABS: BASO % 0.2 % (0.0-1.0); EOS % 0.1 % (0.0-3.0); HEMATOCRIT 39.1 % (42.0-52.0); HEMOGLOBIN 14.2 g/dl (13.5-17.5); IMMATURE GRANULOCYTE % 0.6 % (0-3.0); LYMPH # 0.7 10^3/uL (1.5-4.5); LYMPH % 5.2 % (24.0-44.0); MEAN CORPUSCULAR HEMOGLOBIN 35.2 pg (27.0-33.0); MEAN CORPUSCULAR HGB CONC 36.3 g/dl (32.0-36.5); MONO # 0.6 10^3/uL (0.0-0.8); MONO % 4.6 % (0.0-5.0); NEUTROPHILS # 11.1 10^3/uL (1.8-7.7); NEUTROPHILS % 89.3 % (36.0-66.0); PLATELET COUNT, AUTOMATED 203 10^3/uL (150-450); RED BLOOD COUNT 4.03 10^6/uL (4.30-6.10); RED CELL DISTRIBUTION WIDTH 13.1 % (11.5-14.5); WHITE BLOOD COUNT 12.5 10^3/uL (4.0-10.0)
[2017-09-09] MEDS: MORPHINE 4 MG/ML 1ML VIAL/SYRINGE (J2270) IV (20:16)
[2017-09-09] MEDS: METOCLOPRAMIDE INJ 10MG/2ML VIAL (J2765) IV (20:16)
[2017-09-09] MEDS: GASTROGRAFIN SOLUTION 30ML PO ×2 (20:18→21:00)
[2017-09-09] MEDS: NS 500 ML IV ×2 (20:20→21:15)
[2017-09-09 20:33] LABS: INR 1.88; PROTHROMBIN TIME 22.2 SECONDS (12.4-14.5)
[2017-09-09 20:34] LABS: PARTIAL THROMBOPLASTIN TIME 32.7 SECONDS (26.8-37.9)
[2017-09-09 20:44] LABS: ALBUMIN 3.8 GM/DL (3.2-5.2); ALBUMIN/GLOBULIN RATIO 1.12 (1.00-1.93); ALKALINE PHOSPHATASE 190 U/L (45-117); ALT/SGPT 135 U/L (12-78); ANION GAP 11 MEQ/L (8-16); AST/SGOT 188 U/L (7-37); BILIRUBIN,DIRECT 1.9 MG/DL (0.0-0.2); BILIRUBIN,TOTAL 2.6 MG/DL (0.2-1.0); BLOOD UREA NITROGEN 9 MG/DL (7-18); CALCIUM LEVEL 8.2 MG/DL (8.8-10.2); CARBON DIOXIDE LEVEL 27 MEQ/L (21-32); CHLORIDE LEVEL 84 MEQ/L (98-107); CREATININE FOR GFR 1.12 MG/DL (0.70-1.30); GLOMERULAR FILTRATION RATE > 60.0 (>49); GLUCOSE, FASTING 106 MG/DL (70-100); LIPASE 191 U/L (73-393); POTASSIUM SERUM 4.3 MEQ/L (3.5-5.1); SODIUM LEVEL 122 MEQ/L (136-145); TOTAL PROTEIN 7.2 GM/DL (6.4-8.2)
[2017-09-09 21:00] LABS: ETHYL ALCOHOL (ETHANOL) 0.004 % (0.000-0.010)
[2017-09-09] MEDS ORDERED: ISOVUE-370 76% 100ML VIAL (Q9967) As Ordered (21:45)
[2017-09-09 22:27] LABS: APPEARANCE, URINE CLEAR (CLEAR); BACTERIA, URINE AUTO NEGATIVE (NEGATIVE); BILIRUBIN, URINE AUTO NEGATIVE (NEGATIVE); BLOOD, URINE BLOOD NEGATIVE (NEGATIVE); COLOR, URINE YELLOW (YELLOW); GLUCOSE, URINE (UA) AUTO NEGATIVE (NEGATIVE); KETONE, URINE AUTO NEGATIVE (NEGATIVE); LEUKOCYTE ESTERASE, URINE AUTO NEGATIVE (NEGATIVE); NITRITE, URINE AUTO NEGATIVE (NEGATIVE); PROTEIN, URINE AUTO 1+ mg/dL (NEGATIVE); RBC, URINE AUTO 1 /HPF (0-3); SPECIFIC GRAVITY URINE AUTO 1.012 (1.002-1.035); SQUAMOUS EPITHELIAL CELL UR AU 0 /HPF (0-6); WBC, URINE AUTO 2 /HPF (0-3)
[2017-09-10] MEDS: NS 1,000 ML IV ×2 (02:07→13:03)
[2017-09-10 02:45] LABS: URIC ACID 6.7 MG/DL (3.5-7.2)
[2017-09-10] MEDS: KETOROLAC 30 MG/ML VIAL (J1885) IV (02:47)
[2017-09-10 06:18] LABS: HEMATOCRIT 33.3 % (42.0-52.0); MEAN CORPUSCULAR HEMOGLOBIN 35.2 pg (27.0-33.0); MEAN CORPUSCULAR HGB CONC 36.3 g/dl (32.0-36.5); MEAN CORPUSCULAR VOLUME 96.8 fl (80.0-96.0); PLATELET COUNT, AUTOMATED 177 10^3/uL (150-450); RED BLOOD COUNT 3.44 10^6/uL (4.30-6.10); RED CELL DISTRIBUTION WIDTH 13.1 % (11.5-14.5); WHITE BLOOD COUNT 15.2 10^3/uL (4.0-10.0)
[2017-09-10 06:32] LABS: HEMOGLOBIN 12.1 g/dl (13.5-17.5)
[2017-09-10 06:44] LABS: ALBUMIN 2.9 GM/DL (3.2-5.2); ALBUMIN/GLOBULIN RATIO 0.85 (1.00-1.93); ALKALINE PHOSPHATASE 128 U/L (45-117); ALT/SGPT 145 U/L (12-78); ANION GAP 10 MEQ/L (8-16); AST/SGOT 169 U/L (7-37); BILIRUBIN,TOTAL 3.8 MG/DL (0.2-1.0); BLOOD UREA NITROGEN 11 MG/DL (7-18); CALCIUM LEVEL 7.4 MG/DL (8.8-10.2); CARBON DIOXIDE LEVEL 25 MEQ/L (21-32); CHLORIDE LEVEL 87 MEQ/L (98-107); CREATININE FOR GFR 1.26 MG/DL (0.70-1.30); GLOMERULAR FILTRATION RATE > 60.0 (>49); GLUCOSE, FASTING 120 MG/DL (70-100); SODIUM LEVEL 122 MEQ/L (136-145); TOTAL PROTEIN 6.3 GM/DL (6.4-8.2)
[2017-09-10] MEDS: ATENOLOL 25 MG TAB PO (09:11)
[2017-09-10] MEDS: PANTOPRAZOLE 40MG TAB (PROTONIX) PO (09:11)
[2017-09-10] MEDS: RIVAROXABAN 15 MG TAB (XARELTO) PO ×2 (09:11→20:25)
[2017-09-10] MEDS: hydroCHLOROthiazide 25 MG TAB PO (09:11)
[2017-09-10] MEDS: ONDANSETRON 4 MG TAB (S0181) PO ×2 (11:12→19:38)
[2017-09-10] MEDS: MORPHINE 4 MG/ML 1ML VIAL/SYRINGE (J2270) IV (20:31)
[2017-09-11] MEDS: MORPHINE 4 MG/ML 1ML VIAL/SYRINGE (J2270) IV ×4 (00:40→16:40)
[2017-09-11] MEDS: NS 1,000 ML IV (00:42)
[2017-09-11 06:30] LABS: ALBUMIN 3.2 GM/DL (3.2-5.2); ALBUMIN/GLOBULIN RATIO 0.94 (1.00-1.93); ALKALINE PHOSPHATASE 144 U/L (45-117); ALT/SGPT 130 U/L (12-78); ANION GAP 7 MEQ/L (8-16); AST/SGOT 112 U/L (7-37); BILIRUBIN,TOTAL 5.1 MG/DL (0.2-1.0); BLOOD UREA NITROGEN 8 MG/DL (7-18); CALCIUM LEVEL 7.9 MG/DL (8.8-10.2); CARBON DIOXIDE LEVEL 27 MEQ/L (21-32); CHLORIDE LEVEL 91 MEQ/L (98-107); CREATININE FOR GFR 0.97 MG/DL (0.70-1.30); GLOMERULAR FILTRATION RATE > 60.0 (>49); GLUCOSE, FASTING 112 MG/DL (70-100); POTASSIUM SERUM 3.7 MEQ/L (3.5-5.1); SODIUM LEVEL 125 MEQ/L (136-145); TOTAL PROTEIN 6.6 GM/DL (6.4-8.2)
[2017-09-11 06:43] LABS: HEMATOCRIT 34.9 % (42.0-52.0); HEMOGLOBIN 12.8 g/dl (13.5-17.5); MEAN CORPUSCULAR HEMOGLOBIN 35.8 pg (27.0-33.0); MEAN CORPUSCULAR VOLUME 97.5 fl (80.0-96.0); PLATELET COUNT, AUTOMATED 167 10^3/uL (150-450); RED BLOOD COUNT 3.58 10^6/uL (4.30-6.10); RED CELL DISTRIBUTION WIDTH 13.3 % (11.5-14.5); WHITE BLOOD COUNT 10.6 10^3/uL (4.0-10.0)
[2017-09-11 06:59] LABS: MEAN CORPUSCULAR HGB CONC 36.7 g/dl (32.0-36.5)
[2017-09-11] MEDS: FUROSEMIDE 20 MG/2 ML VIAL (J1940) IV (08:28)
[2017-09-11] MEDS: SODIUM CHLORIDE 1 GM TAB PO ×2 (08:28→11:18)
[2017-09-11] MEDS: ATENOLOL 25 MG TAB PO (08:29)
[2017-09-11] MEDS: ONDANSETRON 4 MG TAB (S0181) PO (08:29)
[2017-09-11] MEDS: RIVAROXABAN 15 MG TAB (XARELTO) PO (08:29)
[2017-09-11] MEDS: PANTOPRAZOLE 40MG TAB (PROTONIX) PO (08:29)
[2017-09-11 13:30] LABS: ANION GAP 9 MEQ/L (8-16); BLOOD UREA NITROGEN 7 MG/DL (7-18); CALCIUM LEVEL 7.7 MG/DL (8.8-10.2); CARBON DIOXIDE LEVEL 27 MEQ/L (21-32); CHLORIDE LEVEL 90 MEQ/L (98-107); CREATININE FOR GFR 0.96 MG/DL (0.70-1.30); GLOMERULAR FILTRATION RATE > 60.0 (>49); GLUCOSE, FASTING 123 MG/DL (70-100); POTASSIUM SERUM 3.6 MEQ/L (3.5-5.1); SODIUM LEVEL 126 MEQ/L (136-145)
== END 2017-09-11 16:45 | disposition short-term general hospital (02) | DRG 241 ==
LOC: M ED INP 09-10 01:04 → M MS5PR 09-10 01:55 → M ED 18:35
DX: K27.9 Peptic ulcer, site unspecified, unspecified as acute or chronic, without hemorrhage or perforation (principal); K85.90 Acute pancreatitis without necrosis or infection, unspecified; E87.1 Hypo-osmolality and hyponatremia; K80.51 Calculus of bile duct without cholangitis or cholecystitis with obstruction; K70.10 Alcoholic hepatitis without ascites; R10.11 Right upper quadrant pain; I25.2 Old myocardial infarction; K21.9 Gastro-esophageal reflux disease without esophagitis; I10 Essential (primary) hypertension; F10.20 Alcohol dependence, uncomplicated; F17.210 Nicotine dependence, cigarettes, uncomplicated; K29.20 Alcoholic gastritis without bleeding; Z86.718 Personal history of other venous thrombosis and embolism; Z79.01 Long term (current) use of anticoagulants; Z79.899 Other long term (current) drug therapy

== ENCOUNTER → 2018-01-28 | Outpatient (REF) | payer OTHER ==
[2018-01-28 15:04] LABS: ALBUMIN 3.6 GM/DL (3.2-5.2); ALBUMIN/GLOBULIN RATIO 1.03 (1.00-1.93); ALKALINE PHOSPHATASE 122 U/L (45-117); ALT/SGPT 61 U/L (12-78); ANION GAP 13 MEQ/L (8-16); AST/SGOT 47 U/L (7-37); BILIRUBIN,TOTAL 0.8 MG/DL (0.2-1.0); BLOOD UREA NITROGEN 4 MG/DL (7-18); CALCIUM LEVEL 8.5 MG/DL (8.8-10.2); CARBON DIOXIDE LEVEL 25 MEQ/L (21-32); CHLORIDE LEVEL 87 MEQ/L (98-107); CHOLESTEROL LEVEL 142 MG/DL (<200); CREATININE FOR GFR 0.77 MG/DL (0.70-1.30); GLOMERULAR FILTRATION RATE > 60.0 (>49); GLUCOSE, FASTING 120 MG/DL (70-100); HDL CHOLESTEROL 31 MG/DL (>40); LDL CHOLESTEROL 88 MG/DL (<100); NON-HDL-C 111 MG/DL; SODIUM LEVEL 125 MEQ/L (136-145); THYROID STIMULATING HORMONE 0.476 uIU/ML (0.358-3.740); TOTAL PROTEIN 7.1 GM/DL (6.4-8.2); TRIGLYCERIDES LEVEL 117 MG/DL (<150)
== END ==
LOC: M LAB REF 12:26
DX: I10 Essential (primary) hypertension (principal)